=== PATIENT | male | born 1940 | race Caucasian/White ===

== ENCOUNTER 2022-07-12 10:14 | Outpatient (CLI) | payer MEDICARE, SELFPAY ==
[2022-07-12 15:21] LABS: Chloride* 101 mmol/L (96-114); Sodium* 132 mmol/L (135-149)
[2022-07-12 15:22] LABS: Albumin* 3.7 g/dL (3.3-5.0); Potassium* 4.7 mmol/L (3.6-5.1)
[2022-07-12 15:24] LABS: Bilirubin Total* 0.5 mg/dL (0.1-1.5); Carbon Dioxide* 26 mmol/L (20-32); Cholesterol* 147 mg/dL (90-199); Creatinine* 1.3 mg/dL (0.5-1.5); Estimated Glomerular Filt Rate 55 ml/min; Total Protein* 6.3 g/dL (6.0-8.3)
[2022-07-12 15:25] LABS: Alanine Aminotransferase* 19 U/L (4-50); Alkaline Phosphatase* 79 U/L (40-150); Aspartate Amino Transferase* 21 U/L (12-35); Blood Urea Nitrogen* 15 mg/dL (7-30); Glucose* 165 mg/dL (60-115); HDL Cholesterol* 48 mg/dL (>=40); LDL Cholesterol Calculated 80 mg/dL (<100); Triglycerides* 93 mg/dL (40-149)
[2022-07-12 15:37] LABS: Creatinine Urine 87.2 mg/dL
[2022-07-12 16:18] LABS: Microalbumin Creatinine Ratio 370 mg/g (0-30); Microalbumin Urine 33 mg/dL
== END 2022-07-12 10:15 | disposition home or self-care (01) ==
PROVIDERS: PCP Nurse Practitioner Family; Visit Provider Nurse Practitioner Family
DX: E11.9 Type 2 diabetes mellitus without complications (principal); E78.5 Hyperlipidemia, unspecified; I10 Essential (primary) hypertension
CPT/HCPCS: 80053; 80061; 82043; 82570; 84443

== ENCOUNTER 2023-09-12 12:39 | Outpatient (CLI) | payer MEDICARE, SELFPAY | END 2023-09-12 12:40 | disposition home or self-care (01) | PROVIDERS: PCP Nurse Practitioner Family; Visit Provider Nurse Practitioner Family | DX: E11.9 Type 2 diabetes mellitus without complications (principal); L03.115 Cellulitis of right lower limb; D64.9 Anemia, unspecified | CPT/HCPCS: 80053; 80061; 82043; 82570; 84443; 85025 ==

== ENCOUNTER 2023-09-19 13:00 | Outpatient (CLI) | payer MEDICARE, SELFPAY ==
--- OUTSIDE RECORDS SUMMARY | 2023-09-19 13:03 | XMS_ITS | Clinical Summary ---
Author Name Unknown Organization [facility] Address [place], [place] [address] Care Team Providers Care Machining And Assembly Supervisor Name Role Phone Clinic, No Pcp Or Primary Care Provider Unavaila ble Allergies Active Allergy Reactions Criticality Noted Date Comments Penicillins Anaphylaxis High 03/15/2020 Medications Medication Sig Dispensed Refills Start Date End Date Status MULTIVITAMIN & MINERAL FORMULA TAB take 1 tab po daily 0 Active ASPIRIN 81 MG TAB, DELAYED RELEASE 0 06/28/2007 Active blood-glucose meter Dispense glucose meter, test strips and lancets covered by the patient insurance. Test 1 times per day and PRN. 1 Device 0 08/15/2013 Active nitroglycerin (NITROSTAT) 0.4 mg sublingual tabletIndications:Di abetes mellitus without complication (HC) Place 1 tablet under the tongue every 5 minutes if needed for Chest Pain. 30 tablet 3 11/28/2018 Active glimepiride (AMARYL) 4 mg tabletIndications:Di abetes mellitus without complication (HC) Take 2 Tablets (8 mg) by mouth once daily with a meal. 180 tablet. 3 10/15/2020 Active simvastatin (ZOCOR) 80 mg tabletIndications:Hy perlipidemia LDL goal <100 Take 1 Tablet (80 mg) by mouth at bedtime. 90 tablet. 1 10/14/2020 Active rOPINIRole (REQUIP) 0.5 mg tabletIndications:Le g cramping Take 1 Tablet (0.5 mg) by mouth at bedtime. 90 tablet. 1 10/14/2020 Active pioglitazone (ACTOS) 45 mg tabletIndications:Di abetes mellitus without complication (HC) Take 1 Tablet (45 mg) by mouth once daily. 90 tablet. 1 10/14/2020 Active lisinopriL (PRINIVIL; ZESTRIL) 20 mg tabletIndications:HT N, goal below 130/80 Take 1 Tablet (20 mg) by mouth once daily. 90 tablet. 1 10/14/2020 Active simvastatin (ZOCOR) 80 mg tabletIndications:Hy perlipidemia LDL goal <100 TAKE 1 TABLET BY MOUTH AT BEDTIME 100 Tablet 12/20/2021 Active pioglitazone (ACTOS) 45 mg tabletIndications:Di abetes mellitus without complication (HC) TAKE 1 TABLET BY MOUTH ONCE DAILY 100 Tablet 12/20/2021 Active metFORMIN (GLUCOPHAGE XR) 500 mg Extended-Release tabletIndications:Di abetes mellitus without complication (HC) TAKE 2 TABLETS BY MOUTH TWICE DAILY WITH MEALS 360 Tablet 3 05/24/2022 Active lisinopriL (PRINIVIL; ZESTRIL) 20 mg tabletIndications:HT N, goal below 130/80 TAKE 1 TABLET BY MOUTH ONCE DAILY 100 Tablet 2 05/31/2022 Active blood sugar diagnostic (Accu-Chek Yesika Plus test strp) stripIndications:Oneida betes mellitus without complication (HC) TEST ONCE DAILY 100 Each 2 01/10/2023 Active Active Problems Problem Noted Date Diagnosed Date Uncontrolled type 2 diabetes mellitus without complication, without long-term current use of insulin 11/28/2018 Tubular adenoma of colon 03/30/2014 Type II or unspecified type diabetes mellitus without mention of complication, not stated as uncontrolled 06/08/2006 Other and unspecified hyperlipidemia 06/08/2006 Impotence of organic origin 06/08/2006 Unspecified essential hypertension 06/08/2006 Hypertrophy of prostate with out urinary obstruction and other lower urinary tract symptoms (LUTS) 06/08/2006 SCC (squamous cell carcinoma), face Immunizations Name Administration Dates Next Due Pneumococcal Poly,23-Valent (Pneumovax) 03/25/20 11 Pneumococcal conj 13-Valent (Prevnar 13) 017,11/26/2014 Td (Age >=7 Years) 09/28/1999 Td, Preservative Free (age >= 7 Years) 0 Tdap 03/25/2011 Family History Medical History Relation Name Comments Other Brother 2 VASCULAR DISEAS E Heart Disease Father Cancer Paternal Uncle 3 Heart Disease Paternal Uncle 4 Heart Disease Paternal Uncle 5 Diabetes Sister 2 Relation Name Status Comments Brother 1 Brother 2 Father (Age 51) Mother Paternal Uncle 1 (Age 60'S) Paternal Uncle 2 (Age 60'S) Paternal Uncle 3 Paternal Uncle 4 Paternal Uncle 5 Sister 1 (Age 64) Sister 2 Social History Tobacco Use Types Packs/Day Years Used Date Smoking Tobacco: Former Cigarettes Q uit: 05/29/1970 Smokeless Tobacco: Never Alcohol Use Standard Drinks/Week Comments Yes 0 (1 standard drink = 0.6 oz pur e alcohol) OCCASIONAL PHQ-2 Answer Date Recorded PHQ-2 TOTAL SCORE 0 10/13/2020 Social Connections Answer Date Recorded Frequency of Communication with Friends and Fami ly Not on file 05/30/2021 Financial Resource Strain Answer Date R ecorded Difficulty of Paying Living Expenses Not on file 05/30/2021 Difficulty of Paying Living Expenses Not on file 05/30/2021 Sex and Gender Information Value Date Recorded Sex Assigned at Not on file Gender Identity Not on file Sexual Orientation Not on file Obstetrics History Last Filed Vital Signs Vital Sign Reading Time Taken Comments Blood Pressure 138/70 10/13/2020 10:52 AM CDT Pulse 76 10/13/2020 10:52 AM CDT Temperature 36.6 ??C (97.8 ??F) 10/13/2020 10:52 AM C DT Respiratory Rate 20 10/13/2020 10:52 AM CDT Oxygen Saturation 98% 03/19/2020 5:28 PM CDT Inhaled Oxygen Concentration - - Weight 113.4 kg (250 lb) 10/13/2020 10:52 AM CDT Height 172.7 cm (5' 8) 10/13/2020 10:52 AM CDT Body Mass Index 38.01 10/13/2020 10:52 AM CDT Plan of Treatment Health Maintenance Due Date Last Done Comments Zoster (shingles) series for age 50+ (1 of 2) 1988 Medicare Wellness for age 65+ 05/21/2020 05/21/2019 Tetanus booster 03/25/2021 03/25/2011, 05/1999, 09/28/1999 BMI (ht and wt on same day) for age 18+ 10/13/2021 10/13/2020, 12/11/2019, 05/21/2019, Additional history exists Depression screening for age 12+ 10/15/2021 10/15/2020, 10/14/2020, 10/13/2020, Additional history exists COVID-19 vaccine series ( season) 2023 Influenza for age 65+ 01/29/2024 Tdap Completed 03/25/2011 Pneumococcal series for age 65+ Completed 06/01/2016, 11/26/2014, 03/25/2011 Advance Directives * Full Code (Latest Code Status on File) Date Activated Date Inactivated Comments 01/18/2017 10:20 AM 01/18/2017 2:12 PM * Full Code Date Activated Date Inactivated Comments 01/18/2017 7:29 AM 01/18/2017 10:20 AM Care Teams Machining And Assembly Supervisor Relationship Specialty Start Date End Date Clinic, No Pcp Or . PCP - General 10/02/20
== END 2023-09-19 13:01 | disposition home or self-care (01) ==
LOC: KYNREF 13:01
PROVIDERS: PCP Nurse Practitioner Family; Visit Provider Nurse Practitioner Family
DX: D64.9 Anemia, unspecified (principal)
CPT/HCPCS: 82607; 82728; 82746; 83540; 83550; 85025

== ENCOUNTER 2023-09-26 12:29 | Outpatient (CLI) | payer MEDICARE, SELFPAY ==
--- OUTSIDE RECORDS SUMMARY | 2023-09-26 12:32 | XMS_ITS | Clinical Summary ---
Author Name Unknown Organization [facility] [facility] Address [place], [place] [address] Care Team Providers Care Climate Change Risk Assessor Name Role Phone Clinic, No Pcp Or [...] 10/13/2020 10:52 AM CDT Plan of Treatment Upcoming Encounters Date Type Department Care Team (Late st Contact Info) Description 09/26/2023 1:00 PM CDT Ancillary Procedure [facility] [address] [place] [address] Health Maintenance Due Date Last Done Comments Zoster (shingles) series for age 50+ (1 of 2) 1988 Medicare Wellness for age 65+ 05/21/2020 05/21/2019 Tetanus booster 03/25/2021 03/25/2011, 0505/1999, 09/28/1999 BMI (ht and wt on same [...] 7:29 AM 01/18/2017 10:20 AM Care Teams Climate Change Risk Assessor Relationship Specialty Start Date End Date Clinic, No Pcp Or . PCP - General 10/02/20
== END 2023-09-26 12:30 | disposition home or self-care (01) ==
PROVIDERS: PCP Nurse Practitioner Family; Visit Provider Nurse Practitioner Family
DX: R01.1 Cardiac murmur, unspecified (principal); I35.0 Nonrheumatic aortic (valve) stenosis
CPT/HCPCS: 93306

== ENCOUNTER 2024-03-12 12:50 | Outpatient (CLI) | payer MEDICARE, SELFPAY ==
--- OUTSIDE RECORDS SUMMARY | 2024-03-12 13:11 | XMS_ITS | Clinical Summary ---
Author Organization [facility] Address [place], [place] [address] Care Team Providers Care Communication Assistant Name Role Phone Clinic, No Pcp Or [...] ONCE DAILY 100 Each 2 01/10/2023 Active hydroCHLOROthiazide 25 mg tabletIndications:Co ngestive heart failure, unspecified HF chronicity, unspecified heart failure type (HC) Take 1 Tablet (25 mg) by mouth once daily. 60 Tablet 1 11/03/2023 Active Active Problems Problem Noted Date Diagnosed [...] Friends and Fami ly Not on file 11/03/2023 Financial Resource Strain Answer Date R ecorded [...] for age 50+ (1 of 2) 1988 RSV vaccine for adults or (1 - 1-dose 75+ series) 2013 Medicare Wellness for age 65+ 05/21/2020 05/21/2019 Tetanus booster 03/25/2021 03/25/2011, 05/1999, 09/28/1999 BMI (ht and wt on same day) for age 18+ 10/13/2021 10/13/2020, 12/11/2019, 05/21/2019, Additional history exists Depression screening for age 12+ 10/15/2021 10/15/2020, 10/14/2020, 10/13/2020, Additional history exists COVID-19 vaccine series ( season) 2024 Influenza for age 65+ 01/29/2024 Tdap Completed 03/25/2011 Pneumococcal series for age 65+ Completed 06/01/2016, 11/26/2014, 03/25/2011 Advance Directives * Full Code (Latest Code Status on File) Date Activated Date Inactivated Comments 01/18/2017 10:20 AM 01/18/2017 2:12 PM * Full Code Date Activated Date Inactivated Comments 01/18/2017 7:29 AM 01/18/2017 10:20 AM Care Teams Communication Assistant Relationship Specialty Start Date End Date Clinic, No Pcp Or . PCP - General 10/02/20
== END 2024-03-12 12:51 | disposition home or self-care (01) ==
PROVIDERS: PCP Nurse Practitioner Family; Visit Provider Nurse Practitioner Family
DX: E11.9 Type 2 diabetes mellitus without complications (principal); I10 Essential (primary) hypertension; Z51.81 Encounter for therapeutic drug level monitoring
CPT/HCPCS: 80048

== ENCOUNTER 2024-04-23 09:06 | Outpatient (CLI) | payer MEDICARE, SELFPAY | END 2024-04-23 09:07 | disposition home or self-care (01) | PROVIDERS: PCP Nurse Practitioner Family; Visit Provider Nurse Practitioner Family | DX: I10 Essential (primary) hypertension (principal) | CPT/HCPCS: 80048 ==

== ENCOUNTER 2024-05-21 12:53 | Outpatient (CLI) | payer MEDICARE, SELFPAY | END 2024-05-21 12:54 | disposition home or self-care (01) | PROVIDERS: PCP Nurse Practitioner Family; Visit Provider Nurse Practitioner Family | DX: I10 Essential (primary) hypertension (principal); E87.1 Hypo-osmolality and hyponatremia; R79.89 Other specified abnormal findings of blood chemistry | CPT/HCPCS: 80048 ==

== ENCOUNTER 2024-06-14 12:59 | Outpatient (CLI) | payer MEDICARE, SELFPAY | END 2024-06-14 13:00 | disposition home or self-care (01) | LOC: KYNREF 12:59 | PROVIDERS: PCP Nurse Practitioner Family; Visit Provider Nurse Practitioner Family | DX: E87.1 Hypo-osmolality and hyponatremia (principal) | CPT/HCPCS: 80048 ==

== ENCOUNTER 2024-07-09 10:25 | Outpatient (CLI) | payer MEDICARE, SELFPAY ==
--- NOTE | 2024-07-09 12:15 | CRLHL7_ITS ---
For Patients: As a result of the Cures Act, medical imaging exams and procedure reports are released immediately into your electronic medical record. You may view this report before your referring provider. If you have questions, please contact your health care provider. CLINICAL HISTORY: Bilateral carotid bruits, dizziness and giddiness TECHNIQUE: The carotid circulations and the vertebral arteries in the neck were examined with mata-scale ultrasound, color-flow and Doppler spectral analysis. Degrees of stenosis were determined using SRU 2002 Consensus Panel Criteria. FINDINGS: Sonographic images demonstrate bilateral atherosclerotic plaque formation without suspicious soft tissue mass. There was antegrade blood flow demonstrated within the vertebral arteries and the subclavian arteries demonstrated a normal triphasic waveform. The spectral Doppler tracings of the common carotid, internal and external carotid arteries demonstrate no abnormal turbulence or spectral broadening. There was no significant elevation of peak systolic blood flow which would indicate a hemodynamically-significant stenosis by SRU criteria. The ICA/CCA peak systolic velocity ratio measures 1.5 on the right and 1.3 on the left. Multiple small thyroid nodules are incidentally noted. IMPRESSION: Less than 50 percent stenosis of the internal carotid arteries bilaterally. Dictated by Arya Smallwood MD @ 07/09/2024 1:37:01 PM (Electronically Signed)
== END 2024-07-09 10:26 | disposition home or self-care (01) ==
LOC: US 10:26
PROVIDERS: PCP Nurse Practitioner Family; Referring Provider Internal Medicine Cardiovascular Disease; Visit Provider Nurse Practitioner Family
DX: I35.0 Nonrheumatic aortic (valve) stenosis (principal); R42 Dizziness and giddiness; I65.23 Occlusion and stenosis of bilateral carotid arteries; R09.89 Other specified symptoms and signs involving the circulatory and respiratory systems
CPT/HCPCS: 93306; 93880

== ENCOUNTER 2024-12-17 13:29 | Outpatient (CLI) | payer MEDICARE, SELFPAY | END 2024-12-17 13:30 | disposition home or self-care (01) | PROVIDERS: PCP Nurse Practitioner Family; Visit Provider Nurse Practitioner Family | DX: E78.5 Hyperlipidemia, unspecified (principal); I10 Essential (primary) hypertension; E11.9 Type 2 diabetes mellitus without complications; R60.0 Localized edema; Z13.21 Encounter for screening for nutritional disorder | CPT/HCPCS: 80053; 80061; 82043; 82570; 82607; 83880; 84443; 85025 ==

== ENCOUNTER 2025-01-07 13:14 | Outpatient (CLI) | payer MEDICARE, SELFPAY | END 2025-01-07 13:15 | disposition home or self-care (01) | PROVIDERS: PCP Nurse Practitioner Family; Visit Provider Nurse Practitioner Family | DX: E87.1 Hypo-osmolality and hyponatremia (principal); D64.9 Anemia, unspecified; I10 Essential (primary) hypertension; E11.9 Type 2 diabetes mellitus without complications | CPT/HCPCS: 80048; 83880 ==

== ENCOUNTER 2025-05-16 14:33 | Outpatient (CLI) | payer MEDICARE, SELFPAY | END 2025-05-16 14:34 | disposition home or self-care (01) | PROVIDERS: PCP Nurse Practitioner Family; Visit Provider Nurse Practitioner Family | DX: R80.9 Proteinuria, unspecified (principal); R60.0 Localized edema; I50.9 Heart failure, unspecified | CPT/HCPCS: 80048; 82043; 82570; 83880; 85025 ==

== ENCOUNTER 2025-05-27 08:43 | Outpatient (CLI) | payer MEDICARE, SELFPAY | END 2025-05-27 08:44 | disposition home or self-care (01) | PROVIDERS: PCP Nurse Practitioner Family; Visit Provider Nurse Practitioner Family | DX: D64.9 Anemia, unspecified (principal); I50.9 Heart failure, unspecified | CPT/HCPCS: 80048; 82728; 83540; 83880; 85025 ==